=== PATIENT | female | born 2005 | race Hispanic/Latino ===

== ENCOUNTER 2023-06-28 12:13 | Emergency (ER) | payer OTHER ==
--- OUTSIDE RECORDS SUMMARY | 2023-06-28 12:18 | XMS REPORT | Continuity of Care Document ---
:2005 Author Organization [facility] t Address [address] [place] [address] Care Team Providers Name Role Phone PCP, PATIENT DOES NOT HAVE A Primary Care Physician Unavaila ISELA Caldwell Attending Clinician Unavailable ISELA SINGH Attending Clinician Unavailable BILL MCKENZIE Attending Clinician Unavailable BILL MCKENZIE Attending Clinician Unavailable Rey Castro Attending Clinician REY HENRY Attending Clinician Unavailable Doctor Unassigned, [place] Attending Clinician Unavailable CHOLO RENDON Attending Clinician Unavailable Cholo Law Attending Clinician Unknown, Attending Attending Clinician Unavailable Lab, Ang - Db Attending Clinician Unavailable OFELIA WHITFIELD Attending Clinician Unavailable Tejas Leon PA-C Attending Clinician TEJAS LEON Attending Clinician Unavailable [facility] Attending Clinician Unavailable Payers Payer Name Policy Type Policy Number Effective Date Expiration Date S dorothea MAGALLON [id number] 2021 00:00:00 Problems Condition Condition Condition Status Onset Resolution Last Treating Co mments Source Name Details Category Date Date Treatment Clinician Date Oral Oral Disease Active Univers contracept contracept 17 it y of ion ion 00:00: [place] initiation initiation 00 Me dical Branch Breakthrou Breakthrou Disease Active U nivers gh gh 17 ity of bleeding bleeding 00:00: [place] on on 00 Medical Nexplanon Nexplanon Bran ch Presence Presence Disease Active Unive rs of of 4-17 ity of subdermal subdermal 00:00[place] contracept contracept 00 Me dical georgie device georgie device Br anch Abdominal Abdominal Disease Active 2021-11 Uni vers pain, pain, 0-17 [place]y of epigastric [place]igastric [place] Heartburn Heartburn Disease Active 2021-11 Uni vers 0-17 ity of 00:00: [place] 00 [facility] Branch Nausea and Nausea and Disease Active 2021-11 U nivers vomiting, vomiting, 0-17 ity of unspecifie [place] d vomiting 00 Me dical type type Branch Early Early Disease Active 2021-11 Univers satiety satiety 0-17 ity of 00:00: [place] 00 [facility] Branch Other Other Disease Active 2021-11 Univers constipati constipati 0-17 it y of on on 00:00: [address] Allergies, Adverse Reactions, Alerts Allergy Allergy Status Severity Reaction(s) Onset Inactive Treating Comm ents Source Name Type Date Date Clinician NO KNOWN Drug Active Univers ALLERGIE Class ity of S [facility] Social History Social Habit Start Date Stop Date Quantity Comments Source ASSERTION 2023-05-17 University of 00:00:00 [facility] Gender identity Universit y of [facility] Sexual orientation Univer sity of [facility] Alcohol intake 2023-06-10 2023-06-10 Current drinker Unive rsity of 00:00:00 00:00:00 of alcohol [facility] (finding) Branch Exposure to 2023-02-24 2023-03-06 Not sure [facility] SARS-CoV-2 (event) 00:00:00 18:59:00 [facility] Tobacco use and 2022-08-27 2022-08-27 Smokeless Universit y of exposure 00:00:00 00:00:00 tobacco non-user [facility] History of Social 2022-08-27 2022-08-27 Univers ity of function 00:00:00 00:00:00 [facility] Sex Assigned At [birth year] Universit y of 00:00:00 00:00:00 [place] [facility] Smoking Status Start Date Stop Date Source Never smoked tobacco [facility] Medications Ordered Filled Start Stop Current Ordering Indication Dosage Frequency Signature Comments Components Source Medication Medication Date Date Medication? Clinician (SIG) Name Name Iram 2022- Yes [id number] 100mg Take 1 Univers oin&Nit. 8-11 capsule by ity of [place] 00:00[place] 04:59 [place] 00 :00 the Medical capsule morning Branch and 1 capsule in the evening. Do all this for 7 days. Yes [id number] Take 1 Uni vers vit 7-31 combo pack ity of 33-iron-fol 00:00: daily [place] ic-dha 00 Medical (SELECT-OB Branch + DHA) 29 mg iron-1 mg -250 mg combo pack pantoprazol Yes [id number] 40mg Take 1 Univers e 40 mg EC 7-31 tablet by ity of tablet 00:00: mouth in [place] 00 the Medical morning. Branch Yes [id number] Take 1 Uni vers vit 7-31 combo pack ity of 33-iron-fol 00:00: daily [place] ic-dha 00 Medical (SELECT-OB Branch + DHA) 29 mg iron-1 mg -250 mg combo pack pantoprazol Yes [id number] 40mg Take 1 Univers e 40 mg EC 7-31 tablet by ity of tablet 00:00: mouth in [place] 00 the Medical morning. Branch Yes [id number] Take 1 Uni vers vit 7-31 combo pack ity of 33-iron-fol 00:00: daily [place] ic-dha Medical (SELECT-OB Branch + DHA) 29 mg iron-1 mg -250 mg combo pack pantoprazol Yes [id number] 40mg Take 1 Univers e 40 mg EC 7-31 tablet by ity of tablet 00:00: mouth in [place] 00 the Medical morning. Branch amoxicillin 2022- Yes [id number] 1{tbl} Take 1 Univers -clavulanat 06-0809 tablet by it y of e 00:00: 04:59 mouth in [place] (AUGMENTIN) 00 :00 the Medical 875-125 mg morning Branch per tablet and 1 tablet in the evening. Do all this for 10 days. amoxicillin 2022- No [id number] 1{tbl} Take 1 Univers -clavulanat 7-29 07-31 tablet by it y of e 00:00: 00:00 mouth in [place] (AUGMENTIN) 00 :00 the Medical 875-125 mg morning Branch per tablet and 1 tablet in the evening. Do all this for 10 days. LOESTRIN FE 2022-0 Yes [id number] 1{tbl} Take 1 Univers (LOESTRIN 4-27 tablet by ity o [facility] 11/30) 1 00:00: mouth in [place] mg-20 mcg 00 the Medical (21)/75 mg morning. Branc h (7) tablet LOESTRIN FE 2022-0 Yes [id number] 1{tbl} Take 1 Univers (LOESTRIN 4-27 tablet by Coupz o [facility] 11/30) 1 00:00: mouth in [place] mg-20 mcg 00 the Medical (21)/75 mg morning. Branc h (7) tablet LOESTRIN FE 2022-0 Yes [id number] 1{tbl} Take 1 Univers (LOESTRIN 4-27 tablet by Coupz o [facility] 11/30) 1 00:00: mouth in [place] mg-20 mcg 00 the Medical (21)/75 mg morning. Branc h (7) tablet LOESTRIN FE 2022-0 Yes [id number] 1{tbl} Take 1 Univers (LOESTRIN 4-27 tablet by Coupz o [facility] 11/30) 1 00:00: mouth in [place] mg-20 mcg 00 the Medical (21)/75 mg morning. Branc h (7) tablet LOESTRIN FE 2022-0 2022- No [id number] 1{tbl} Take 1 Univers (LOESTRIN 4-27 -31 tablet by ity of 11/30) 1 00:00: 00:00 [place] mg-20 mcg 00 :00 the Medical (21)/75 mg morning. Branc h (7) tablet Bismuth 2022-0 2022- No [id number] 524mg Take 2 U nivers Subsalicyla 2-10 02-25 tablets by i ty of te 00:00: 05:59 mouth 4 [place] (BISMUTH) 00 :00 (four) Medical 262 mg times Branch tablet daily for 14 days. metroNIDAZO 2022-0 2022- No [id number] 250mg Take 1 Univers LE (FLAGYL) 2-10 02-25 tablet by it y of 250 mg 00:00: 05:59 mouth 4 [place] tablet 00 :00 (four) Medical times Branch daily for 14 days. tetracyclin 2022-0 2022- No [id number] 500mg Take 2 Univers e 250 mg 2-10 02-25 capsules ity of capsule 00:00: 05:59 by mouth 4 [place] 00 :00 (four) Medical times Branch daily for 14 days. omeprazole 2022-0 2022- No [id number] 40mg Take 1 Univers 40 mg 2-10 02-25 capsule by ity of capsule 00:00: 05:59 mouth in [place] 00 :00 the Medical morning Branch and 1 capsule in the evening. Do all this for 14 days. Bismuth 2022-0 2022- No [id number] 524mg Take 2 U nivers Subsalicyla 2-10 02-25 tablets by i ty of te 00:00: 05:59 mouth 4 [place] (BISMUTH) 00 :00 (four) Medical 262 mg times Branch tablet daily for 14 days. metroNIDAZO 2022-2022- No [id number] 250mg Take 1 Univers LE (FLAGYL) 2-10 02-25 tablet by it y of 250 mg 00:00: 05:59 mouth 4 [place] tablet 00 :00 (four) Medical times Branch daily for 14 days. tetracyclin 2022-2022- No [id number] 500mg Take 2 Univers e 250 mg 2-10 02-25 capsules ity of capsule 00:00: 05:59 by mouth 4 [place] 00 :00 (four) Medical times Branch daily for 14 days. omeprazole 2022-0 2022- No [id number] 40mg Take 1 Univers 40 mg 2-10 02-25 capsule by ity of capsule 00:00: 05:59 mouth in [place] 00 :00 the Medical morning Branch and 1 capsule in the evening. Do all this for 14 days. Bismuth 2022-0 2022- No [id number] 524mg Take 2 U nivers Subsalicyla 2-10 02-25 tablets by i ty of te 00:00: 05:59 mouth 4 [place] (BISMUTH) 00 :00 (four) Medical 262 mg times Branch tablet daily for 14 days. metroNIDAZO 2022-2022- No [id number] 250mg Take 1 Univers LE (FLAGYL) 2-10 02-25 tablet by it y of 250 mg 00:00: 05:59 mouth 4 [place] tablet 00 :00 (four) Medical times Branch daily for 14 days. tetracyclin 2022-2022- No [id number] 500mg Take 2 Univers e 250 mg 2-10 02-25 capsules ity of capsule 00:00: 05:59 by mouth 4 [place] 00 :00 (four) Medical times Branch daily for 14 days. omeprazole 2022-2022- No [id number] 40mg Take 1 Univers 40 mg 2-10 02-25 capsule by ity of capsule 00:00: 05:59 mouth in [place] 00 :00 the Medical morning Branch and 1 capsule in the evening. Do all this for 14 days. Bismuth 2022-2022- No [id number] 524mg Take 2 U nivers Subsalicyla 2-10 02-25 tablets by i ty of te 00:00: 05:59 mouth 4 [place] (BISMUTH) 00 :00 (four) Medical 262 mg times Branch tablet daily for 14 days. metroNIDAZO 2022- No [id number] 250mg Take 1 Univers LE (FLAGYL) 2-10 02-25 tablet by it y of 250 mg 00:00: 05:59 mouth 4 [place] tablet 00 :00 (four) Medical times Branch daily for 14 days. tetracyclin No [id number] 500mg Take 2 Univers e 250 mg 2-10 02-25 capsules ity of capsule 00:00: 05:59 by mouth 4 [place] 00 :00 (four) Medical times Branch daily for 14 days. omeprazole 2022-0 2022- No [id number] 40mg Take 1 Univers 40 mg 2-10 02-25 capsule by ity of capsule 00:00: 05:59 mouth in [place] 00 :00 the Medical morning Branch and 1 capsule in the evening. Do all this for 14 days. Bismuth 2022-2022- No [id number] 524mg Take 2 U nivers Subsalicyla 2-10 02-25 tablets by i ty of te 00:00: 05:59 mouth 4 [place] (BISMUTH) 00 :00 (four) Medical 262 mg times Branch tablet daily for 14 days. metroNIDAZO 2022- No [id number] 250mg Take 1 Univers LE (FLAGYL) 2-10 02-25 tablet by it y of 250 mg 00:00: 05:59 mouth 4 [place] tablet 00 :00 (four) Medical times Branch daily for 14 days. tetracyclin 2022- No [id number] 500mg Take 2 Univers e 250 mg 2-10 -25 capsules ity of capsule 00:00: 05:59 by mouth 4 [place] 00 :00 (four) Medical times Branch daily for 14 days. omeprazole 2022- No [id number] 40mg Take 1 Univers 40 mg 2-10 -25 capsule by ity of capsule 00:00: 05:59 mouth in [place] 00 :00 the Medical morning Branch and 1 capsule in the evening. Do all this for 14 days. Bismuth No [id number] 524mg Take 2 U nivers Subsalicyla 2-10 -25 tablets by i ty of te 00:00: 05:59 mouth 4 [place] (BISMUTH) 00 :00 (four) Medical 262 mg times Branch tablet daily for 14 days. metroNIDAZO No [id number] 250mg Take 1 Univers LE (FLAGYL) 2-10 02-25 tablet by it y of 250 mg 00:00: 05:59 mouth 4 [place] tablet 00 :00 (four) Medical times Branch daily for 14 days. tetracyclin No [id number] 500mg Take 2 Univers e 250 mg 2-10 -25 capsules ity of capsule 00:00: 05:59 by mouth 4 [place] 00 :00 (four) Medical times Branch daily for 14 days. omeprazole 2022- No [id number] 40mg Take 1 Univers 40 mg 2-10 -25 capsule by ity of capsule 00:00: 05:59 mouth in [place] 00 :00 the Medical morning Branch and 1 capsule in the evening. Do all this for 14 days. omeprazole 2021-11 Yes [id number] 40mg Take 1 Univers 40 mg 0-17 capsule by ity of capsule 00:00: mouth in [place] the Medical morning. Branch omeprazole 2021-11 Yes [id number] 40mg Take 1 Univers 40 mg 0-17 capsule by ity of capsule 00:00: mouth in [place] the Medical morning. Branch omeprazole 2021-11 Yes [id number] 40mg Take 1 Univers 40 mg 0-17 capsule by ity of capsule 00:00: mouth in [place] the Medical morning. Branch omeprazole 2021-11 Yes [id number] 40mg Take 1 Univers 40 mg 0-17 capsule by ity of capsule 00:00: mouth in [place] the Medical morning. Branch omeprazole 2021-11 Yes [id number] 40mg Take 1 Univers 40 mg 0-17 capsule by ity of capsule 00:00: mouth in [place] the Medical morning. Branch omeprazole 2021- Yes [id number] 40mg Take 1 Univers 40 mg 0-17 capsule by ity of capsule 00:00: mouth in [place] the Medical morning. Branch omeprazole 2021-11 Yes [id number] 40mg Take 1 Univers 40 mg 0-17 capsule by ity of capsule 00:00: mouth in [place] the Medical morning. Branch omeprazole 2021-11 Yes [id number] 40mg Take 1 Univers 40 mg 0-17 capsule by ity of capsule 00:00: mouth in [place] the Medical morning. Branch omeprazole 2021- Yes [id number] 40mg Take 1 Univers 40 mg 0-17 capsule by ity of capsule 00:00: mouth in [place] the Medical morning. Branch omeprazole 2021- Yes [id number] 40mg Take 1 Univers 40 mg 0-17 capsule by ity of capsule 00:00: mouth in [place] the Medical morning. Branch omeprazole 2021- Yes [id number] 40mg Take 1 Univers 40 mg 0-17 capsule by ity of capsule 00:00: mouth in [place] the Medical morning. Branch omeprazole 2021- Yes [id number] 40mg Take 1 Univers 40 mg 0-17 capsule by ity of capsule 00:00: mouth in [place] 00 the Medical morning. Branch omeprazole 2021- Yes [id number] 40mg Take 1 Univers 40 mg 0-17 capsule by ity of capsule 00:00: mouth in [place] 00 the Medical morning. Branch omeprazole 2021-11 Yes [id number] 40mg Take 1 Univers 40 mg 0-17 capsule by ity of capsule 00:00: mouth in [place] 00 the Medical morning. Branch omeprazole 2021-11 Yes [id number] 40mg Take 1 Univers 40 mg 0-17 capsule by ity of capsule 00:00: mouth in [place] 00 the Medical morning. Branch omeprazole 2021-11 Yes [id number] 40mg Take 1 Univers 40 mg 0-17 capsule by ity of capsule 00:00: mouth in [place] 00 the Medical morning. Branch omeprazole 2021-11 Yes [id number] 40mg Take 1 Univers 40 mg 0-17 capsule by ity of capsule 00:00: mouth in [place] 00 the Medical morning. Branch omeprazole 2021-11 Yes [id number] 40mg Take 1 Univers 40 mg 0-17 capsule by ity of capsule 00:00: mouth in [place] the Medical morning. Branch omeprazole 2021-11 Yes [id number] 40mg Take 1 Univers 40 mg 0-17 capsule by ity of capsule 00:00: mouth in [place] the Medical morning. Branch omeprazole 2021-11 Yes [id number] 40mg Take 1 Univers 40 mg 0-17 capsule by ity of capsule 00:00: mouth in [place] the Medical morning. Branch omeprazole 2021-11- No [id number] 40mg Take 1 Univers 40 mg 0-17 - capsule by ity of capsule 00:00: 00:00 mouth in [place] 00 :00 the Medical morning. Branch Vital Signs Vital Name Observation Time Observation Value Comments Source Systolic blood 2023-06-10 18:00:00 130 mm[Hg] [facility] Diastolic blood 2023-06-10 18:00:00 80 mm[Hg] [facility] Heart rate 2023-06-10 18:00:00 98 /min [facility] Body temperature 2023-06-10 18:00:00 35.56 [facility] Respiratory rate 2023-06-10 18:00:00 18 /min [facility] Body height 2023-06-10 18:00:00 165.1 cm [facility] Body weight 2023-06-10 18:00:00 62.46 kg Universi ty of [place] [facility] BMI 2023-06-10 18:00:00 22.91 kg/m2 Universi ty of [place] [facility] Systolic blood 2023-06-08 15:48:00 132 mm[Hg] Univer sity of pressure [place] [facility] Diastolic blood 2023-06-08 15:48:00 87 mm[Hg] Unive rsity of pressure [place] [facility] Heart rate 2023-06-08 15:48:00 102 /min Universi ty of [place] [facility] Body temperature 2023-06-08 15:48:00 36.17 [facility] Univ ersity of [place] [facility] Respiratory rate 2023-06-08 15:48:00 17 /min Univ ersity of [place] [facility] Body height 2023-06-08 15:48:00 165.1 cm Universi ty of [place] [facility] Body weight 2023-06-08 15:48:00 63.759 kg Universi ty of [place] [facility] BMI 2023-06-08 15:48:00 23.39 kg/m2 Universi ty of [facility] Branch Oxygen saturation in 2023-06-08 15:48:00 99 /min University of Arterial blood by [facility] Pulse oximetry Branch Systolic blood 2023-03-07 19:00:00 130 mm[Hg] Univer sity of pressure [place] [facility] Diastolic blood 2023-03-07 19:00:00 85 mm[Hg] Unive rsity of pressure [place] [facility] Heart rate 2023-03-07 19:00:00 95 /min Universi ty of [facility] Branch Respiratory rate 2023-03-07 19:00:00 18 /min Univ ersity of [place] [facility] Body height 2023-03-07 19:00:00 165.1 cm Universi ty of [place] [facility] Body weight 2023-03-07 19:00:00 63.05 kg Universi ty of [place] [facility] BMI 2023-03-07 19:00:00 23.13 kg/m2 Universi ty of [place] [facility] Systolic blood 2023-02-25 19:04:00 130 mm[Hg] Univer sity of pressure [place] [facility] Diastolic blood 2023-02-25 19:04:00 85 mm[Hg] Unive rsity of pressure [place] [facility] Heart rate 2023-02-25 19:04:00 80 /min Universi ty of [facility] Body temperature 2023-02-25 19:04:00 36.56 [facility] Respiratory rate 2023-02-25 19:04:00 16 /min [facility] Body height 2023-02-25 19:04:00 167.[address] [facility] Body weight 2023-02-25 19:04:[address] [facility] BMI 2023-02-25 19:04:00 22.55 kg/m2 Universi ty [facility] Systolic blood 2022-08-27 13:58:00 121 mm[Hg] Univer sity of pressure [facility] Diastolic blood 2022-08-27 13:58:00 79 mm[Hg] [facility] Heart rate 2022-08-27 13:58:00 87 /min Universi ty of [facility] Body temperature 2022-08-27 13:58:00 36.78 [facility] Body height 2022-08-27 13:58:00 167.[address] [facility] Body weight 2022-08-27 13:58:00 63.322 kg Universi ty of [facility] Branch BMI 2022-08-27 13:58:00 22.53 kg/m2 [facility] Procedures Procedure Date / Time Performing Clinician Source Performed CBC WITH DIFF 2023-06-10 18:50:00 Carl [facility] GLYCOSYLATED HEMOGLOBIN 2023-06-10 18:50:00 Carl [facility] [address] (A1C) [facility] HEPATITIS B SURFACE 2023-06-10 18:50:00 Carl [facility] ANTIGEN [facility] HCV ANTIBODY 2023-06-10 18:50:00 Carl [facility] HB ABO GROUPING 2023-06-10 18:50:00 Carl, [facility] HIV 1/2 AG-AB WITH 2023-06-10 18:50:00 Carl Rey [facility] POCT TEST 2023-06-10 18:04:00 Carl, Rey [facility] Medical Branch POCT URINALYSIS W/O 2023-06-10 18:04:00 Rey Henry [facility] SPECIFIC GRAVITY Medical Branch REPORT OF 2023-06-10 05:01:00 Doctor Unassigned, No Un iversity of [place] Name Medical Branch CONSENT FOR 2023-03-07 05:01:00 Doctor Unassigned, No Univer [facility] CONTRACEPTION Name Medical Branch CONSENT/REFUSAL FOR 2023-02-25 18:53:16 Doctor Unassigned, No Un [facility]ity of [place] DIAGNOSIS AND TREATMENT Name Medical Branch ASSIGNMENT OF BENEFITS 2023-02-25 18:52:58 Doctor Unassigned, No [facility] Medical Branch EXTERNAL PROVIDER 2022-12-05 06:01:00 Doctor Unassigned, No Univ [facility] RECORDS [facility] Medical Branch Encounters Start End Encounter Admission Attending Care Care Encounter Source Date/Time Date/Time Type Type Clinicians Facility Department ID 2023-06-28 2023-06-28 Outpatient R ISELA SINGH [facility] [id number] Univers 15:00:00 15:00:00 ISELA SINGH ity [facility] 2023-06-13 2023-06-13 Patient YULISSA Henry [id number] Univers 00:00:00 00:00:[facility] [id number] [facility] [place] [id number] [place] [address] Branch 2023-06-10 2023-06-10 Outpatient R CARL [facility] [id number] Univers 13:00:00 13:53:[address] [facility] 2023-06-10 2023-06-10 Initial YULISSA Henry [id number] Univers 13:00:00 13:53:58 [facility] HEALTH [id number] ity of Visit [place] [id number] [place] [address] Branch 2023-06-10 2023-06-10 Orders Doctor MALDONADO [id number] Univers 00:00:00 00:00:00 Only Unassigned, HARRY 350.1.13.10 ity of [place] [facility] 4.2.7.2.686 [place] [id number] [address] 2023-06-08 2023-06-08 Outpatient R MANUELGERALisa [facility] [id number] Univers 10:40:00 11:05:17 RANJADON ity [facility] 2023-06-08 2023-06-08 Urgent Cholo Rendon [facility] [id number] Univers 10:40:00 11:05:17 Care Unknown, Attending HEALTH 350.1.13.10 ity of [place] 4.2.7.2.686 [place] KAI?BLEA [id number] [address] MEDICAL OFFICE BUILDING 2023-05-30 2023-05-30 Outpatient R MAGALY BILL [facility] B [id number] Univers 13:00:00 13:00:00 BILL MCKENZIE [facility] [place] [facility] 2023-03-07 2023-03-07 Outpatient R MAGALY BILL [facility] B [id number] Univers 14:00:00 14:17:32 MAGALYBILL [facility] [place] [facility] 2023-03-07 2023-03-07 [facility] [id number] Univers 14:00:00 14:17:32 Visit Bill RIVAS 350.1.13.10 it y of [place] [id number] [facility] 134 Branch 2023-03-07 2023-03-07 Orders Doctor ERICA [id number] [id number] Univers 00:00:00 00:00:00 Only Unassigned, HARRY 350.1.13.10 ity of [place] HOSPITAL 4.2.7.2.686 [place] [id number] [facility] 009 Branch 2023-03-05 2023-03-05 Director Of Anesthesia Services Lab, Ang - Jv [facility] 1.2.840.1 [id number] Univers 13:00:00 13:15:00 Visit Bill Mckenzie 350.1.13.1 0 ity of [facility] 4.2.7.2.686 [place] KAI?BLEA [id number] Nh raquel [facility] [address] [facility] OFF[address] [facility] 2023-03-05 2023-03-05 Outpatient R BILL MCKENZIE [facility] B [id number] Univers 13:00:00 13:00:00 TRIBILL GORDON ity of [facility] 2023-03-05 2023-03-05 Letter [facility] [id number] Univers 00:00:00 00:00:00 (Out) Bill CUEVAS 350.1.13.10 i [place] [id number] [facility] 134 [facility] 2023-02-25 2023-02-25 Office [facility] 1.2.840.114 [id number] Univers 14:00:00 14:23:39 Visit Bill RIVAS 350.1.13.10 it y of [place] [id number] [address] 2023-02-25 2023-02-25 Outpatient R BILL MCKENZIE [facility] B [id number] Univers 14:00:00 14:23:39 MICHAELBILL GORDON [facility] 2023-02-25 2023-02-25 Orders Doctor ERICA 1.2.840.114 [id number] Univers 00:00:00 00:00:00 Only Unassigned, HARRY 350.1.13.10 ity of [place] [facility]OSPITAL 4.2.7.2.686 [place] [id number] [facility] [address] [place] 2022-12-27 2022-12-27 Telephone YULISSA Leon 1.2.840.114 [id number] Univers 00:00:00 00:00:00 [place] HEALTH 350.1.13.10 i ty [place] [id number] [place] [address] [place] 2022-12-26 2022-12-26 Telephone Dano [facility] 1.2.840.114 [id number] Univers 00:00:00 00:00:00 [facility] 350.1.13.10 i ty [place] [id number] [address] 2022-12-24 2022-12-24 Telephone Dano [facility] [id number] [id number] Univers 00:00:00 00:00:00 [facility] 350.1.13.10 i ty of [place] [id number] [address] 2022-12-21 2022-12-21 Patient Dano [facility] [id number] Univers 00:00:00 00:00:00 Secure Msg [facility] 350.1.13.10 ity of [place] [id number] [place] [address] [place] 2022-12-05 2022-12-05 Orders Doctor ERICA 1.2.840.114 [id number] Univers 00:00:00 00:00:00 Only Unassigned, HARRY 350.1.13.10 ity of [place] HOSPITAL [id number] [place] as [id number] [facility] [address] 2022-08-27 2022-08-27 Director Of Anesthesia Services [facility] UNIVERS [id number] Univers 09:45:00 10:00:00 Visit Tejas Leon [facility] [id number] ity of CL[id number] [id number] [facility] [address] 2022-08-27 2022-08-27 Office Dano [facility] [id number] Univers 09:00:00 09:29:16 [facility] [id number] [facility] [id number] [id number] [facility] [address] 2022-08-27 2022-08-27 Outpatient R TEJAS LEON [facility] [id number] Univers 09:00:00 09:29:16 TEJAS LEON ity [facility] 2022-08-27 2022-08-27 Patient Dano [facility] [id number] Univers 00:00:00 00:00:00 Secure Msg [place] [facility] [id number] ity of CARE [id number] [facility] AT [phone] [place] [id number] [facility] Results Test Description Test Time Test Comments Results Result Comments Source POCT TEST 2023-06-10 18:04:00 Test Item Value Reference Range Interpretation Comme nts POCT PREG (test code = 1605) Positive On board controls acceptable with C Line (test code = 3574) Yes POCT PREG LOT # (test code = 3575) POCT PREG TEST DATE (test code = 3576) Lab Interpretation (test code = 19516-4) [facility] [id number] 18:04:00 Test Item Value Reference Range Interpretation Comments POCT PH U (test code = 3254) 5 mg/dl 5-8 POCT U LEUK EST (test code = trace Negative - Negative 3263) POCT U NIT (test code = 3262) negative Negative - Negative POCT U PROT (test code = 3259) trace Negative - Negative POCT U GLU (test code = 3256) negative Negative - Negative POCT U KETONE (test code = 3258) 3+ Negative - Negative POCT U BLD (test code = 3257) negative Negative - Negative Lab Interpretation (test code = Abnormal 71412-9) [facility]
[2023-06-28 13:02] LABS: Hematocrit 37.9 % (36.0-45.0); Lymphocytes % 6.1 % (15.3-44.8); MCV 87.3 fL (80-100); MPV 6.6 fL (7.6-11.3); Platelets 288 thou/uL (152-406); RBC Red Blood Cell Count 4.34 M/uL (3.86-4.86)
[2023-06-28 13:22] LABS: Potassium 3.5 mEq/L (3.5-5.1)
--- NOTE | 2023-06-28 14:58 | RAD REPORT ---
EXAM DESCRIPTION: US - Transvaginal OB - 06/28/2023 1:30 pm CLINICAL HISTORY: ABD CRAMPING, COMPARISON: No comparisons TECHNIQUE: Sonographic grayscale and color flow images of the pelvis were obtained through transvagi nal approach. FINDINGS: Uterus is normal in shape, with mildly enlarged size measuring 11.2 cm in long axis. No in trauterine . Endometrium measures 5 millimeter in thickness. Small nabothian cyst. No focal myometrial abnormalities. Left ovary measures 2.5 x 2.2 x 2.2 cm. Preserved fluid to the left ovary. No suspicious adnexal mass es. The right ovary was not visualized due to over shadowing bowel. No free fluid. IMPRESSION: 1. No evidence of an intrauterine . 2. Uterus is mildly enlarged measuring 11.2 cm in long axis. 3. No evidence of an ectopic gestational sac. Correlation with serial beta HCG levels is recommended. 4. No suspicious adnexal abnormalities. Evaluation limited by nonvisualization of the right ovary.
[2023-06-28 15:13] LABS: Specific Gravity > 1.030 (1.005-1.030)
[2023-06-28 15:14] LABS: Specific Gravity > 1.030 (1.005-1.030); Urine Bacteria None Seen /HPF (<20); Urine Bilirubin NEGATIVE (Negative); Urine Blood 3+ (OVER) (Negative); Urine Clarity Extremely Turbid (Clear); Urine Color Light-Orange (Yellow); Urine Glucose NEGATIVE (Negative); Urine Mucus 4+ /HPF (None Seen); Urine Protein 1+ (Negative); Urine RBC >50 /HPF (None Seen); Urine Urobilinogen Normal (Normal); Urine pH 5.5 (5.0-7.0)
--- NOTE | 2023-06-28 15:54 | EDPHYS ---
Physician Documentation [facility] Name: Cristina Leiva Age: 18 yrs Sex: Female : 2005 Arrival Date: 06/28/2023 Time: 12:13 Bed 2 Private MD: ED Physician Dylan Gonzales HPI: 06/28 12:55 This 18 yrs old Female presents to ER via Wheelchair with complaints of rn Abdominal Cramping, 7WKS PREG. 12:55 The patient presents to the emergency department with abdominal pain, of the suprapubic rn area, that started today, vaginal bleeding, that is moderate. The estimated gestational age is 7 weeks. course: care: private OB physician, Ultrasound: the patient has not had an ultrasound. Previous pregnancies: in previous pregnancies patient has had no complications. Associated signs and symptoms: Pertinent positives: abdominal pain, vaginal bleeding, Pertinent negatives: fever. The patient has not experienced similar symptoms in the past. The patient has not recently seen a physician. Pt reports approx 7 weeks , started to have abd cramping and vaginal bleeding, sat on toilet and felt "large plop", thinks passed . [place] dizziness and nausea while on toilet but now improved. . Historical: - Allergies: 12:34 No Known Allergies; cm10 - PMHx: 12:34 None; cm10 - PSHx: 12:34 None; cm10 - Immunization history:: Adult Immunizations unknown. - Social history:: Smoking status: Patient denies any tobacco usage or history of. - Family history:: not pertinent. - Hospitalizations: : No recent hospitalization is reported. ROS: 12:55 Constitutional: Negative for fever, chills, and weight loss, Eyes: Negative for injury, rn pain, redness, and discharge, Cardiovascular: Negative for chest pain, palpitations, and edema, Respiratory: Negative for shortness of breath, cough, wheezing, and pleuritic chest pain, Abdomen/GI: + abd cramping and vaginal bleeding : + vaginal bleeding MS/Extremity: Negative for injury and deformity, Skin: Negative for injury, rash, and discoloration, Neuro: Negative for headache, weakness, numbness, tingling, and seizure. Exam: 12:55 Constitutional: This is a well developed, well nourished patient who is awake, alert, rn and in no acute distress. Head/Face: Normocephalic, atraumatic. Cardiovascular: Tachycardic, regular. Respiratory: No increased work of breathing, no retractions or nasal flaring. Abdomen/GI: soft, no focal tenderness Skin: Warm, dry MS/ Extremity: Pulses equal, no cyanosis Neuro: Awake and alert, GCS 15 Vital Signs: 12:32 BP 119 / 73; Pulse 120; Resp 18; Temp 98.7; Pulse Ox 100% ; Weight 63.5 kg; Height 5 cm10 ft. 5 in. ; Pain 6/10; 14:06 BP 122 / 72; Pulse 93; Resp 16; Pulse Ox 100% on R/A; hb 15:03 BP 134 / 74; Pulse 114; Resp 18; Pulse Ox 100% on R/A; ld1 16:30 BP 126 / 76; Pulse 89; Resp 15; Pulse Ox 99% on R/A; Pain 9/10; hb 12:32 Body Mass Index 23.30 (63.50 kg, 165.1 cm) cm10 12:32 Pain Scale: Adult cm10 16:30 Pain Scale: Adult hb MDM: 12:18 Patient medically screened. rn 15:51 Differential diagnosis: complete Ab. Data reviewed: vital signs, nurses notes, lab test rn result(s), radiologic studies, ultrasound, and as a result, I will discharge patient. Counseling: I had a detailed discussion with the patient and/or guardian regarding the historical points, exam findings, and any diagnostic results supporting the discharge/admit diagnosis, lab results, radiology results, the need for outpatient follow up, to return to the emergency department if symptoms worsen or persist or if there are any questions or concerns that arise at home. Response to treatment: the patient's symptoms have mildly improved after treatment, and as a result, I will discharge patient. Special discussion: I discussed with the patient/guardian in detail that at this point there is no indication for admission to the hospital. It is understood, however, that if the symptoms persist or worsen the patient needs to return immediately for re-evaluation. Based on the history and exam findings, there is no indication for further emergent testing or inpatient evaluation. I discussed with the patient/guardian the need to see the OB Gyne specialist for further evaluation of the symptoms. ED course: Pt has improved, bleeding has decreased, observed here for about 4 hours since arrival with repeat hemoglobin not with significant decrease, most likely complete or completing miscarriage, will f/u with her OB doctor and given strict return precautions. . 06/28 12:20 Order name: Abo/rh Typing; Complete Time: 13:42 rn 06/28 12:20 Order name: Basic Metabolic Panel; Complete Time: 13:42 rn 06/28 12:20 Order name: CBC with Diff; Complete Time: 13:10 rn 06/28 12:20 Order name: Test, Urine; Complete Time: 15:20 rn 06/28 12:20 Order name: Quantitative Hcg; Complete Time: 13:42 rn 06/28 12:20 Order name: Urinalysis w/ reflexes; Complete Time: 15:20 rn 06/28 14:47 Order name: Hemoglobin; Complete Time: 15:13 rn 06/28 15:21 Order name: Urine Culture EDMS 06/28 12:20 Order name: US Transvaginal Ob; Complete Time: 15:13 rn 06/28 12:20 Order name: IV Saline Lock; Complete Time: 12:51 rn 06/28 12:20 Order name: Labs collected and sent; Complete Time: 12:51 rn 06/28 12:20 Order name: NPO; Complete Time: 12:51 rn Administered Medications: 15:50 Drug: NS 0.9% IV 500 ml Route: IV; Rate: bolus; Site: right antecubital; hb 16:54 Follow up: Response: No adverse reaction; IV Status: Completed infusion; IV Intake: hb 500ml 15:50 Drug: Methylergonovine IM 0.2 mg Route: IM; Site: right deltoid; hb 16:30 Follow up: Response: No adverse reaction hb 16:55 Drug: Ibuprofen PO 600 mg Route: PO; hb 16:55 Follow up: Response: Medication administered at discharge. hb Disposition Summary: 06/28/23 15:53 Discharge Ordered Location: Home rn Problem: new rn Symptoms: have improved rn Condition: Stable rn Diagnosis - Complete or unspecified spontaneous without complication rn Followup: rn - With: Private Physician - When: 1 - 2 days - Reason: Recheck today's complaints, Re-evaluation by your physician Discharge Instructions: - Discharge Summary Sheet rn - Miscarriage rn Forms: - Medication Reconciliation Form rn - Thank You Letter rn - Antibiotic rn social work - Prescription Opioid Use rn - Patient Portal Instructions rn - Leadership Thank You Letter rn Signatures: Dispatcher [employer] Dylan Nick MD MD rn Baxter, Heather, RN RN hb Martinez, Clarissa, RN RN cm10
--- NOTE | 2023-06-28 15:54 | ER ---
Nurse's Notes [facility] Name: Cristina Leiva Age: 18 yrs Sex: Female : 2005 Arrival Date: 06/28/2023 Time: 12:13 Bed 2 Private MD: Diagnosis: Complete or unspecified spontaneous without complication Presentation: 06/28 12:32 Chief complaint: Patient states: vaginal bleeding onset this morning at 0800. Pt states cm10 that she started having cramping last night and started bleeding this morning. pt states that she has gone through 8 pads in the last 4hrs. Pt is approximately 7-8 weeks . Coronavirus screen: Vaccine status: Patient reports receiving the 2nd dose of the covid vaccine. Ebola Screen: Patient denies travel to an Ebola-affected area in the 21 days before illness onset. No symptoms or risks identified at this time. Initial Sepsis Screen: Does the patient meet any 2 criteria? No. Patient's initial sepsis screen is negative. Does the patient have a suspected source of infection? No. Patient's initial sepsis screen is negative. Risk Assessment: Do you want to hurt yourself or someone else? Patient reports no desire to harm self or others. Onset of symptoms was June 28, 2023. 12:32 Method Of Arrival: Wheelchair cm10 12:32 Acuity: BRIJESH 3 cm10 Historical: - Allergies: 12:34 No Known Allergies; cm10 - PMHx: 12:34 None; cm10 - PSHx: 12:34 None; cm10 - Immunization history:: Adult Immunizations unknown. - Social history:: Smoking status: Patient denies any tobacco usage or history of. - Family history:: not pertinent. - Hospitalizations: : No recent hospitalization is reported. Screenin:52 [facility] ED Fall Risk Assessment (Adult) Score/Fall Risk Level 0 - 2 = Low Risk hb Oriented to surroundings, Maintained a safe environment. Abuse screen: Denies threats or abuse. Denies injuries from another. Nutritional screening: No deficits noted. Tuberculosis screening: No symptoms or risk factors identified. Assessment: 12:52 General: Appears in no apparent distress. Behavior is calm, cooperative. Pain: Pain hb currently is 6 out of 10 on a pain scale. Neuro: Level of Consciousness is awake, alert, obeys commands, Oriented to person, place, time, situation. Cardiovascular: Patient's skin is warm and dry. Respiratory: Respiratory effort is even, unlabored, Respiratory pattern is regular, symmetrical. GI: Reports lower abdominal pain, cramping. : Reports cramping, vaginal bleeding that is. EENT: No signs and/or symptoms were reported regarding the EENT system. Derm: Skin is pink, warm \T\ dry. Musculoskeletal: No signs and/or symptoms reported regarding the musculoskeletal system. 14:05 Reassessment: Patient appears in no apparent distress at this time. Patient and/or hb family updated on plan of care and expected duration. Pain level reassessed. Patient is alert, oriented x 3, equal unlabored respirations, skin warm/dry/pink. Vital Signs: 12:32 BP 119 / 73; Pulse 120; Resp 18; Temp 98.7; Pulse Ox 100% ; Weight 63.5 kg; Height 5 cm10 ft. 5 in. ; Pain 6/10; 14:06 BP 122 / 72; Pulse 93; Resp 16; Pulse Ox 100% on R/A; hb 15:03 BP 134 / 74; Pulse 114; Resp 18; Pulse Ox 100% on R/A; ld1 16:30 BP 126 / 76; Pulse 89; Resp 15; Pulse Ox 99% on R/A; Pain 9/10; hb 12:32 Body Mass Index 23.30 (63.50 kg, 165.1 cm) cm10 12:32 Pain Scale: Adult cm10 16:30 Pain Scale: Adult hb ED Course: 12:16 Patient arrived in ED. ts1 12:18 Dylan Gonzales MD is Attending Physician. rn 12:34 Triage completed. cm10 12:35 Arm band placed on Patient placed in an exam room, on a stretcher. cm10 12:42 Jen Paul, RN is Primary Nurse. hb 12:50 No provider procedures requiring assistance completed. Inserted saline lock: 20 gauge hb in right antecubital area, using aseptic technique. Blood collected. 12:51 Abo/rh Typing Sent. hb 12:51 Basic Metabolic Panel Sent. hb 12:51 CBC with Diff Sent. hb 12:52 Patient has correct armband on for positive identification. Provided Education on: . hb 13:16 US Transvaginal Ob In Process Unspecified. EDMS 15:05 Test, Urine Sent. mm9 15:05 Urinalysis w/ reflexes Sent. mm9 15:05 Urine collected: clean catch specimen, blood tinged. mm9 16:53 IV discontinued, intact, bleeding controlled, No redness/swelling at site. hb Administered Medications: 15:50 Drug: NS 0.9% IV 500 ml Route: IV; Rate: bolus; Site: right antecubital; hb 16:54 Follow up: Response: No adverse reaction; IV Status: Completed infusion; IV Intake: hb 500ml 15:50 Drug: Methylergonovine IM 0.2 mg Route: IM; Site: right deltoid; hb 16:30 Follow up: Response: No adverse reaction hb 16:55 Drug: Ibuprofen PO 600 mg Route: PO; hb 16:55 Follow up: Response: Medication administered at discharge. hb Medication: 12:52 VIS not applicable for this client. hb Intake: 16:54 IV: 500ml; Total: 500ml. hb Outcome: 15:53 Discharge ordered by MD. rn 16:53 Discharged to home ambulatory. hb 16:53 Condition: stable 16:53 Discharge instructions given to patient, Instructed on discharge instructions, follow up and referral plans. medication usage, Demonstrated understanding of instructions, follow-up care, medications. 16:56 Patient left the ED. Signatures: Dispatcher [employer] EDMS Dylan Gonzales MD MD rn Baxter, Heather RN RN Shari Christianson RN RN ld1 Linh Leone mm9 Edwige Hand PAS PAS ts1 Hina Leone, RN RN cm10
[2023-06-28] MEDS ORDERED: METHYLERGONOVINE 0.2MG/ML AMP IM ONE (15:55)
[2023-06-28] MEDS ORDERED: NA CHLORIDE 0.9% 500 ML ONE (15:55)
[2023-06-28] MEDS ORDERED: IBUPROFEN 200 MG TAB PO ONE (17:00)
[2023-06-28 17:18] VITALS: TEMP 98.7
[2023-06-28 17:22] VITALS: BP 126/76; O2SAT 99
== END 2023-06-28 16:56 | disposition home or self-care (01) ==
LOC: ER 12:13
DX: O03.9 Complete or unspecified spontaneous abortion without complication (principal)
CPT/HCPCS: 87088; 85025; 81001; 87086; 80048; 36415; 86900; 81025; 86901; 84702; 85018; 76817; 96360; 96372; 99284; J2210; J7040